=== PATIENT | male | born 1980 | race Caucasian/White ===

== ENCOUNTER 2017-07-16 09:07 | Outpatient (CLI) | payer OTHER ==
[~2017-07-16 09:07] MED LIST: DEXL60CA3 PO; IBUP-1986 PO
[2017-07-16 10:06] LABS: BASOPHILS % (AUTO) 0.3 % (0-1); EOSINOPHILS # (AUTO) 0.2 X10'3 (0-0.9); EOSINOPHILS % (AUTO) 2.6 % (0-6); HEMATOCRIT 42.8 % (42.0-52.0); HEMOGLOBIN 14.7 g/dl (14.0-17.9); LYMPHOCYTES # (AUTO) 2.7 X10'3 (1.1-4.8); LYMPHOCYTES % (AUTO) 37.1 % (21-51); MEAN CORPUSCULAR HEMOGLOBIN 29.8 PG (27.0-31.0); MEAN CORPUSCULAR HGB CONC 34.3 % (33.0-36.5); MEAN CORPUSCULAR VOLUME 86.8 FL (78-98); MEAN PLATELET VOLUME 7.3 FL (7.4-10.4); MONOCYTES # (AUTO) 0.5 X10'3 (0-0.9); MONOCYTES % (AUTO) 7.4 % (2-12); NEUTROPHILS # (AUTO) 3.9 X10'3 (1.8-7.7); NEUTROPHILS % (AUTO) 52.6 % (42-75); PLATELET COUNT 310 X10'3 (140-440); RED BLOOD COUNT 4.93 X10'6 (4.70-6.10); WHITE BLOOD COUNT 7.3 X10'3 (4.5-11.0)
[2017-07-16 10:14] LABS: CLARITY,URINE CLEAR (Clear); COLOR,URINE YELLOW (Yellow); GLUCOSE, URINE NEGATIVE (Neg); KETONES,URINE NEGATIVE (Neg); LEUKOCYTE ESTERASE ,URINE NEGATIVE (Neg); NITRITES, URINE NEGATIVE (Neg); OCCULT BLOOD,URINE NEGATIVE (Neg); PROTEIN,URINE NEGATIVE (Neg); UROBILINOGEN,URINE 0.2 E.U/dL (0.2-1.0)
[2017-07-16 10:15] LABS: UA COLLECTION TYPE CLN CATCH MIDSTREAM
[2017-07-16 10:31] LABS: ALANINE AMINOTRANSFERASE 38 U/L (12-78); ALBUMIN/GLOBULIN RATIO 1.2 (1.1-1.5); ALKALINE PHOSPHATASE 81 IU/L (46-116); ANION GAP 9 (8-16); ASPARTATE AMINO TRANSFERASE 23 U/L (10-37); BILIRUBIN,TOTAL 0.6 MG/DL (0.1-1.0); BLOOD UREA NITROGEN 14 MG/DL (7-18); BUN/CREATININE RATIO 14.4 (5.4-32.0); CALCIUM 9.3 MG/DL (8.5-10.1); CHLORIDE 104 MMOL/L (99-107); CHOL/HDL RATIO 3.9 (0.00-4.99); CHOLESTEROL 176 MG/DL (0-200); CREATININE 0.97 MG/DL (0.60-1.10); GLUCOSE 106 MG/DL (70-104); HDL CHOLESTEROL 45 MG/DL (35-60); LDL CHOLESTEROL 112 MG/DL (50-100); POTASSIUM 4.4 MMOL/L (3.5-5.1); SODIUM 142 MMOL/L (135-145); TOTAL CARBON DIOXIDE 29.2 MMOL/L (24-32); TOTAL PROTEIN 7.4 G/DL (6.4-8.2); TRIGLYCERIDES 81 MG/DL (20-135); eGFR 88 ML/MIN
== END 2017-07-16 23:59 | disposition home or self-care (01) ==
LOC: LAB 09:07
PROVIDERS: ATTEND Family Medicine
DX: F90.9 Attention-deficit hyperactivity disorder, unspecified type (principal); R53.83 Other fatigue; R79.89 Other specified abnormal findings of blood chemistry; Z76.89 Persons encountering health services in other specified circumstances
CPT/HCPCS: 36415; 80053; 80061; 81003; 84439; 84443; 85025

== ENCOUNTER 2017-12-24 05:47 | Outpatient (CLI) | payer OTHER | END 2017-12-24 23:59 | disposition home or self-care (01) | LOC: LAB 05:47 | PROVIDERS: ATTEND Family Medicine | DX: Z72.51 High risk heterosexual behavior (principal); A60.01 Herpesviral infection of penis; Z87.891 Personal history of nicotine dependence | CPT/HCPCS: 36415; 86695; 86696; 87491 ==

== ENCOUNTER 2018-01-05 12:09 | Outpatient (CLI) | payer OTHER | END 2018-01-05 23:59 | disposition home or self-care (01) | LOC: LAB 12:09 | PROVIDERS: ATTEND Otolaryngology | DX: R04.2 Hemoptysis (principal) | CPT/HCPCS: 71046 ==

== ENCOUNTER 2019-03-31 18:24 | Emergency (ER) | payer OTHER ==
[~2019-03-31] VITALS: Ht 193 cm; Wt 100.0 kg
[2019-03-31 19:02] LABS: BASOPHILS # (AUTO) 0.1 X10'3 (0-0.2); BASOPHILS % (AUTO) 0.7 % (0-1); EOSINOPHILS # (AUTO) 0.1 X10'3 (0-0.9); EOSINOPHILS % (AUTO) 1.4 % (0-6); HEMATOCRIT 45.6 % (42.0-52.0); HEMOGLOBIN 15.5 g/dl (14.0-17.9); LYMPHOCYTES # (AUTO) 2.9 X10'3 (1.1-4.8); LYMPHOCYTES % (AUTO) 34.5 % (21-51); MEAN CORPUSCULAR HEMOGLOBIN 29.5 PG (27.0-31.0); MEAN CORPUSCULAR VOLUME 86.5 FL (78-98); MEAN PLATELET VOLUME 7.3 FL (7.4-10.4); MONOCYTES # (AUTO) 0.6 X10'3 (0-0.9); MONOCYTES % (AUTO) 6.6 % (2-12); NEUTROPHILS # (AUTO) 4.8 X10'3 (1.8-7.7); NEUTROPHILS % (AUTO) 56.8 % (42-75); PLATELET COUNT 325 X10'3 (140-440); RED BLOOD COUNT 5.26 X10'6 (4.70-6.10); RED CELL DISTRIBUTION WIDTH 13.8 % (11.5-14.5); WHITE BLOOD COUNT 8.5 X10'3 (4.5-11.0)
[2019-03-31 19:11] LABS: ALANINE AMINOTRANSFERASE 78 U/L (12-78); ALBUMIN 4.6 G/DL (3.4-5.0); ALBUMIN/GLOBULIN RATIO 1.4 (1.1-1.5); ALKALINE PHOSPHATASE 98 IU/L (46-116); ANION GAP 10 (8-16); ASPARTATE AMINO TRANSFERASE 44 U/L (10-37); BILIRUBIN,TOTAL 0.7 MG/DL (0.1-1.0); BLOOD UREA NITROGEN 15 MG/DL (7-18); BUN/CREATININE RATIO 14.7 (5.4-32.0); CALCIUM 9.6 MG/DL (8.5-10.1); CHLORIDE 104 MMOL/L (99-107); CREATININE 1.02 MG/DL (0.60-1.10); GLUCOSE 84 MG/DL (70-104); SODIUM 143 MMOL/L (135-145); TOTAL CARBON DIOXIDE 28.7 MMOL/L (24-32); eGFR 83 ML/MIN
[2019-03-31] MEDS ORDERED: MECL-111 PO (20:07)
--- NOTE | 2019-03-31 20:25 | NUR ---
I HAD ASKED DR MENDEZ FOR THE OTOSCOPE AND HE INFORMED ME THAT THE PATIENT DID NOT HAVE TO HAVE ANY WAX REMOVED THAT I MAY DC THE PATIENT.
[2019-03-31 20:26] VITALS: BP 140/99
== END 2019-03-31 20:27 | disposition home or self-care (01) ==
LOC: ER 18:25
DX: R42 Dizziness and giddiness (principal); H53.8 Other visual disturbances; K21.9 Gastro-esophageal reflux disease without esophagitis; G89.29 Other chronic pain; Z60.2 Problems related to living alone; Z79.899 Other long term (current) drug therapy
CPT/HCPCS: 36415; 71046; 80053; 84484; 85025; 93005; 99284

== ENCOUNTER 2019-04-13 09:51 | Outpatient (CLI) | payer OTHER ==
[~2019-04-13 09:51] MED LIST changes: +MECL-159 PO
[2019-04-13] MEDS ORDERED: iohexol 300mg/ml 100ml inj. ONE (10:00)
[2019-04-13 11:03] LABS: CLARITY,URINE CLEAR (Clear); COLOR,URINE STRAW (Yellow); GLUCOSE, URINE NEGATIVE (Neg); KETONES,URINE NEGATIVE (Neg); LEUKOCYTE ESTERASE ,URINE NEGATIVE (Neg); NITRITES, URINE NEGATIVE (Neg); OCCULT BLOOD,URINE NEGATIVE (Neg); PROTEIN,URINE NEGATIVE (Neg); UROBILINOGEN,URINE 0.2 E.U/dL (0.2-1.0)
[2019-04-13 11:05] LABS: UA COLLECTION TYPE CLN CATCH MIDSTREAM
[2019-04-13 11:05] LABS: BASOPHILS % (AUTO) 0.5 % (0-1); EOSINOPHILS # (AUTO) 0.1 X10'3 (0-0.9); HEMATOCRIT 44.1 % (42.0-52.0); LYMPHOCYTES # (AUTO) 2.2 X10'3 (1.1-4.8); LYMPHOCYTES % (AUTO) 33.1 % (21-51); MEAN CORPUSCULAR HEMOGLOBIN 29.2 PG (27.0-31.0); MEAN PLATELET VOLUME 7.3 FL (7.4-10.4); MONOCYTES # (AUTO) 0.5 X10'3 (0-0.9); MONOCYTES % (AUTO) 7.3 % (2-12); NEUTROPHILS # (AUTO) 3.7 X10'3 (1.8-7.7); NEUTROPHILS % (AUTO) 57.1 % (42-75); PLATELET COUNT 293 X10'3 (140-440); RED BLOOD COUNT 5.13 X10'6 (4.70-6.10); RED CELL DISTRIBUTION WIDTH 13.5 % (11.5-14.5); WHITE BLOOD COUNT 6.5 X10'3 (4.5-11.0)
[2019-04-13 15:04] LABS: ALANINE AMINOTRANSFERASE 41 U/L (12-78); ALBUMIN 3.8 G/DL (3.4-5.0); ALBUMIN/GLOBULIN RATIO 1.1 (1.1-1.5); ALKALINE PHOSPHATASE 86 IU/L (46-116); ANION GAP 10 (8-16); ASPARTATE AMINO TRANSFERASE 24 U/L (10-37); BILIRUBIN,TOTAL 0.6 MG/DL (0.1-1.0); BLOOD UREA NITROGEN 14 MG/DL (7-18); BUN/CREATININE RATIO 14.1 (5.4-32.0); CALCIUM 8.8 MG/DL (8.5-10.1); CHLORIDE 104 MMOL/L (99-107); CHOL/HDL RATIO 3.8 (0.00-4.99); CHOLESTEROL 207 MG/DL (0-200); CREATININE 0.99 MG/DL (0.60-1.10); GLUCOSE 92 MG/DL (70-104); HDL CHOLESTEROL 54 MG/DL (35-60); LDL CHOLESTEROL 133 MG/DL (50-100); POTASSIUM 4.3 MMOL/L (3.5-5.1); SODIUM 141 MMOL/L (135-145); TOTAL CARBON DIOXIDE 27.4 MMOL/L (24-32); TOTAL PROTEIN 7.2 G/DL (6.4-8.2); TRIGLYCERIDES 113 MG/DL (20-135); eGFR 85 ML/MIN
== END 2019-04-13 23:59 | disposition home or self-care (01) ==
LOC: 64 CT 09:51
PROVIDERS: ATTEND Family Medicine
DX: R42 Dizziness and giddiness (principal); F90.9 Attention-deficit hyperactivity disorder, unspecified type; R63.5 Abnormal weight gain
CPT/HCPCS: 36415; 70460; 80053; 80061; 81003; 84439; 84443; 85025; Q9967

== ENCOUNTER 2020-03-20 10:03 | Outpatient (CLI) | payer BC ==
[2020-03-20 11:56] LABS: BASOPHILS % (AUTO) 0.4 % (0-1); EOSINOPHILS # (AUTO) 0.1 X10'3 (0-0.9); HEMATOCRIT 45.5 % (42.0-52.0); HEMOGLOBIN 15.2 g/dl (14.0-17.9); LYMPHOCYTES # (AUTO) 2.1 X10'3 (1.1-4.8); LYMPHOCYTES % (AUTO) 29.9 % (21-51); MEAN CORPUSCULAR HEMOGLOBIN 29.5 PG (27.0-31.0); MEAN CORPUSCULAR HGB CONC 33.5 g/dL (33.0-36.5); MEAN PLATELET VOLUME 7.4 FL (7.4-10.4); MONOCYTES # (AUTO) 0.5 X10'3 (0-0.9); MONOCYTES % (AUTO) 7.5 % (2-12); NEUTROPHILS # (AUTO) 4.2 X10'3 (1.8-7.7); NEUTROPHILS % (AUTO) 61.2 % (42-75); PLATELET COUNT 304 X10'3 (140-440); RED BLOOD COUNT 5.17 X10'6 (4.70-6.10); RED CELL DISTRIBUTION WIDTH 13.4 % (11.5-14.5); WHITE BLOOD COUNT 6.9 X10'3 (4.5-11.0)
[2020-03-20 12:26] LABS: CLARITY,URINE CLEAR (Clear); COLOR,URINE YELLOW (Yellow); GLUCOSE, URINE NEGATIVE (Neg); KETONES,URINE NEGATIVE (Neg); LEUKOCYTE ESTERASE ,URINE NEGATIVE (Neg); NITRITES, URINE NEGATIVE (Neg); OCCULT BLOOD,URINE NEGATIVE (Neg); PROTEIN,URINE NEGATIVE (Neg); UROBILINOGEN,URINE 0.2 E.U/dL (0.2-1.0)
[2020-03-20 12:27] LABS: ALANINE AMINOTRANSFERASE 54 U/L (12-78); ALBUMIN 4.2 G/DL (3.4-5.0); ALBUMIN/GLOBULIN RATIO 1.2 (1.1-1.5); ALKALINE PHOSPHATASE 83 IU/L (46-116); ANION GAP 9 (8-16); ASPARTATE AMINO TRANSFERASE 33 U/L (10-37); BILIRUBIN,TOTAL 0.6 MG/DL (0.1-1.0); BLOOD UREA NITROGEN 15 MG/DL (7-18); BUN/CREATININE RATIO 14.2 (5.4-32.0); CALCIUM 9.4 MG/DL (8.5-10.1); CHLORIDE 105 MMOL/L (99-107); CREATININE 1.06 MG/DL (0.60-1.10); GLUCOSE 103 MG/DL (70-104); POTASSIUM 4.2 MMOL/L (3.5-5.1); SODIUM 143 MMOL/L (135-145); TOTAL CARBON DIOXIDE 28.7 MMOL/L (24-32); TOTAL PROTEIN 7.8 G/DL (6.4-8.2); eGFR 79 ML/MIN
[2020-03-20 12:29] LABS: UA COLLECTION TYPE CLN CATCH MIDSTREAM
[2020-03-20 12:33] LABS: CHOL/HDL RATIO 3.6 (0.00-4.99); CHOLESTEROL 214 MG/DL (0-200); HDL CHOLESTEROL 59 MG/DL (35-60); LDL CHOLESTEROL 133 MG/DL (50-100); TRIGLYCERIDES 103 MG/DL (20-135)
== END 2020-03-20 23:59 | disposition home or self-care (01) ==
LOC: RAD 10:03
PROVIDERS: ATTEND Family Medicine
DX: Z00.00 Encounter for general adult medical examination without abnormal findings (principal); M48.061 Spinal stenosis, lumbar region without neurogenic claudication; G43.919 Migraine, unspecified, intractable, without status migrainosus
CPT/HCPCS: 36415; 70551; 72148; 80053; 80061; 81003; 84439; 84443; 85025

== ENCOUNTER 2020-08-27 08:08 | Emergency (ER) | payer BC, OTHER ==
[~2020-08-27] VITALS: Ht 193 cm; Wt 104.7 kg
[2020-08-27 08:22] VITALS: BP 143/83
[2020-08-27] MEDS ORDERED: TETanus/Pertussis (Acell)/Diphther VAC/PF (Tdap-Adult) 0.5ml syringe IMVAC ONE (08:30)
[2020-08-27] MEDS ORDERED: bacitracin 15gm ointment TP ONE (08:30)
--- NOTE | 2020-08-27 10:00 | NUR ---
BOTH ARMS CLEANED WITH CHLORHEXIDINE WIPES. LEFT ARM WIH PINPOINT SCRATCH, RIGHT ARM WITH MEDIAL ABOUT 7 CM LINEAR SCRATCH/ ABRASION TO UPPER ARM AND LATERALLY A CLUSTER OF SCRATCHES TO RIGHT UPPER ARM BACITRACIN APPLIED AFTER ARMS DRIED, AND BANDAIDS APPLIED. YORDANETN VERBALIZED THAT HE WILL KEEP HIS SCRATCHES COVERED WHILE WORKING. PATIETN VERBALIZED SIGNS AND SYMPTOMS OF INFECTION AND WILL RETURN TO ER IF CONDITION WORSENS OR SIGNS OF INFECTION NOTED. PATIENT IS SPEAKING TO SECURITY WHO IS TAKING A REPORT. PATIENT DISCHARGED BY SHOE RECONDITIONER.
--- NOTE | 2020-08-27 10:01 | NUR ---
NOTE THAT PATIENT CLEANED SCRATCHES THAT BLED WITH ALCOHOL WIPES PRIOR TO ER. ASLO, EXPOSURE LABS DRAWN
== END 2020-08-27 10:02 | disposition home or self-care (01) ==
LOC: ER 08:09
DX: S50.811A Abrasion of right forearm, initial encounter (principal); K21.9 Gastro-esophageal reflux disease without esophagitis; G89.29 Other chronic pain; Z20.3 Contact with and (suspected) exposure to rabies; Z60.2 Problems related to living alone; Z79.899 Other long term (current) drug therapy; W50.4XXA Accidental scratch by another person, initial encounter; Y93.89 Activity, other specified; Y92.89 Other specified places as the place of occurrence of the external cause; Y99.8 Other external cause status
CPT/HCPCS: 90471; 90715; 99283

== ENCOUNTER 2021-03-04 08:51 | Emergency (ER) | payer BC, OTHER ==
[~2021-03-04] VITALS: Ht 193 cm; Wt 93.6 kg
[2021-03-04 09:05] VITALS: BP 125/86
[2021-03-04 09:46] LABS: CLARITY,URINE CLEAR (Clear); COLOR,URINE YELLOW (Yellow); GLUCOSE, URINE NEGATIVE (Neg); KETONES,URINE NEGATIVE (Neg); LEUKOCYTE ESTERASE ,URINE NEGATIVE (Neg); NITRITES, URINE NEGATIVE (Neg); OCCULT BLOOD,URINE NEGATIVE (Neg); PROTEIN,URINE NEGATIVE (Neg); UROBILINOGEN,URINE 0.2 E.U/dL (0.2-1.0)
[2021-03-04 09:48] LABS: BASOPHILS % (AUTO) 0.4 % (0-1); EOSINOPHILS # (AUTO) 0.1 X10'3 (0-0.9); EOSINOPHILS % (AUTO) 1.4 % (0-6); HEMATOCRIT 44.5 % (42.0-52.0); HEMOGLOBIN 15.4 g/dl (14.0-17.9); LYMPHOCYTES # (AUTO) 2.2 X10'3 (1.1-4.8); LYMPHOCYTES % (AUTO) 35.9 % (21-51); MEAN CORPUSCULAR HGB CONC 34.6 g/dL (33.0-36.5); MEAN CORPUSCULAR VOLUME 86.7 FL (78-98); MEAN PLATELET VOLUME 7.3 FL (7.4-10.4); MONOCYTES # (AUTO) 0.4 X10'3 (0-0.9); MONOCYTES % (AUTO) 6.1 % (2-12); NEUTROPHILS # (AUTO) 3.4 X10'3 (1.8-7.7); NEUTROPHILS % (AUTO) 56.2 % (42-75); PLATELET COUNT 281 X10'3 (140-440); RED BLOOD COUNT 5.13 X10'6 (4.70-6.10); RED CELL DISTRIBUTION WIDTH 14.3 % (11.5-14.5); UA COLLECTION TYPE CLN CATCH MIDSTREAM; WHITE BLOOD COUNT 6.1 X10'3 (4.5-11.0)
[2021-03-04 10:22] LABS: ALANINE AMINOTRANSFERASE 31 U/L (12-78); ALBUMIN 4.2 G/DL (3.4-5.0); ALBUMIN/GLOBULIN RATIO 1.2 (1.1-1.5); ALKALINE PHOSPHATASE 66 IU/L (46-116); ANION GAP 8 (8-16); ASPARTATE AMINO TRANSFERASE 18 U/L (10-37); BILIRUBIN,TOTAL 0.9 MG/DL (0.1-1.0); BLOOD UREA NITROGEN 19 MG/DL (7-18); BUN/CREATININE RATIO 18.3 (5.4-32.0); CALCIUM 9.3 MG/DL (8.5-10.1); CHLORIDE 104 MMOL/L (99-107); CHOL/HDL RATIO 3.5 (0.00-4.99); CHOLESTEROL 210 MG/DL (0-200); CREATININE 1.04 MG/DL (0.60-1.10); GLUCOSE 147 MG/DL (70-104); HDL CHOLESTEROL 60 MG/DL (35-60); LDL CHOLESTEROL 133 MG/DL (50-100); POTASSIUM 4.2 MMOL/L (3.5-5.1); SODIUM 141 MMOL/L (135-145); TOTAL CARBON DIOXIDE 28.9 MMOL/L (24-32); TOTAL PROTEIN 7.8 G/DL (6.4-8.2); TRIGLYCERIDES 58 MG/DL (20-135); URINE AMPHETAMINE SCREEN POSITIVE (Neg); URINE BARBITUATE SCREEN NEGATIVE (Neg); URINE BENZODIAZEPINES SCREEN NEGATIVE (Neg); URINE CANNABINOID SCREEN NEGATIVE (Neg); URINE COCAINE SCREEN NEGATIVE (Neg); URINE METHADONE SCREEN NEGATIVE (Neg); URINE OPIATE SCREEN NEGATIVE (Neg); URINE PHENCYCLIDINE SCREEN NEGATIVE (Neg); eGFR 80 ML/MIN
== END 2021-03-04 09:37 | disposition home or self-care (01) ==
LOC: ER 08:51
DX: K21.9 Gastro-esophageal reflux disease without esophagitis (principal); G89.29 Other chronic pain; Z00.00 Encounter for general adult medical examination without abnormal findings
CPT/HCPCS: 36415; 80053; 80061; 80305; 81003; 84439; 84443; 85025; 99283

== ENCOUNTER 2022-07-29 11:52 | Outpatient (CLI) | payer BC | END 2022-07-29 23:59 | disposition home or self-care (01) | LOC: RAD 11:52 | PROVIDERS: ATTEND Physician Assistant | DX: M47.816 Spondylosis without myelopathy or radiculopathy, lumbar region (principal); M54.50 Low back pain, unspecified | CPT/HCPCS: 72114 ==

== ENCOUNTER 2022-10-09 11:05 | Outpatient (CLI) | payer BC | END 2022-10-09 23:59 | disposition home or self-care (01) | LOC: RAD 11:05 | PROVIDERS: ATTEND Physician Assistant | DX: M51.36 Other intervertebral disc degeneration, lumbar region (principal); M51.27 Other intervertebral disc displacement, lumbosacral region; M48.07 Spinal stenosis, lumbosacral region; M53.87 Other specified dorsopathies, lumbosacral region | CPT/HCPCS: 72148 ==

== ENCOUNTER 2022-11-11 01:32 | Emergency (ER) | payer BC ==
[~2022-11-11] VITALS: Ht 190.5 cm; Wt 97.3 kg
--- NOTE | 2022-11-11 02:37 | NUR ---
The patient has had a chronic cough off and on since fall. Currently has had a cough this time for the past two weeks. SOB at times. Afebrile.
--- NOTE | 2022-11-11 02:57 | NUR ---
Patient back from xray. Verbal report given to Dr. Urrutia.
--- NOTE | 2022-11-11 03:48 | NUR ---
at the bedside
--- NOTE | 2022-11-11 03:55 | NUR ---
Blood glucose 103
[2022-11-11] MEDS ORDERED: azithromycin 250mg tablet PO ONE (04:00)
[2022-11-11] MEDS ORDERED: predniSONE 20 mg tablet PO ONE (04:00)
[2022-11-11] MEDS ORDERED: PRED20TA PO (04:11)
[2022-11-11] MEDS ORDERED: PHEN30SP5 NS (04:11)
[2022-11-11] MEDS ORDERED: AZIT-164 PO (04:11)
[2022-11-11] MEDS ORDERED: PANT-47 PO (04:11)
[2022-11-11] MEDS ORDERED: ROBDML PO (04:11)
[2022-11-11] MEDS ORDERED: pantoprazole 40mg Tablet.DR PO SCH ×2 (04:15→07:30)
[2022-11-11] MEDS ORDERED: pantoprazole 40mg Tablet.DR PO ONE (04:15)
[2022-11-11 04:22] VITALS: BP 133/97; PULSE 82; RESP 17; TEMP 98.3; O2SAT 98
== END 2022-11-11 04:25 | disposition home or self-care (01) ==
LOC: ER 01:32
DX: J20.9 Acute bronchitis, unspecified (principal); R05.9 Cough, unspecified; G89.29 Other chronic pain; Z79.899 Other long term (current) drug therapy
CPT/HCPCS: 71046; 82948; 99284; J7512

== ENCOUNTER 2023-07-14 08:50 | Outpatient (CLI) | payer BC ==
[~2023-07-14 08:50] MED LIST changes: -MECL-159 PO; +MECL-302 PO; +PANT-47 PO; +PHEN30SP5 NS
[2023-07-14 09:30] LABS: BASOPHILS % (AUTO) 0.5 % (0-1); EOSINOPHILS # (AUTO) 0.1 X10'3 (0-0.9); EOSINOPHILS % (AUTO) 1.7 % (0-6); HEMATOCRIT 43.4 % (42.0-52.0); HEMOGLOBIN 14.8 g/dl (14.0-17.9); LYMPHOCYTES # (AUTO) 2.2 X10'3 (1.1-4.8); LYMPHOCYTES % (AUTO) 35.4 % (21-51); MEAN CORPUSCULAR HEMOGLOBIN 29.1 PG (27.0-31.0); MEAN CORPUSCULAR HGB CONC 34.1 g/dL (33.0-36.5); MEAN CORPUSCULAR VOLUME 85.3 FL (78-98); MONOCYTES # (AUTO) 0.4 X10'3 (0-0.9); MONOCYTES % (AUTO) 7.1 % (2-12); NEUTROPHILS # (AUTO) 3.5 X10'3 (1.8-7.7); NEUTROPHILS % (AUTO) 55.3 % (42-75); PLATELET COUNT 250 X10'3 (140-440); RED BLOOD COUNT 5.09 X10'6 (4.70-6.10); WHITE BLOOD COUNT 6.3 X10'3 (4.5-11.0)
[2023-07-14 09:55] LABS: ALANINE AMINOTRANSFERASE 28 U/L (12-78); ALBUMIN 3.7 G/DL (3.4-5.0); ALBUMIN/GLOBULIN RATIO 1.1 (1.1-1.5); ALKALINE PHOSPHATASE 76 IU/L (46-116); ANION GAP 9 (8-16); ASPARTATE AMINO TRANSFERASE 21 U/L (10-37); BILIRUBIN,TOTAL 0.7 MG/DL (0.1-1.0); BLOOD UREA NITROGEN 13 MG/DL (7-18); BUN/CREATININE RATIO 11.1 (10.0-20.0); CALCIUM 9.2 MG/DL (8.5-10.1); CHLORIDE 105 MMOL/L (99-107); CHOL/HDL RATIO 3.2 (0.00-4.99); CHOLESTEROL 196 MG/DL (0-200); CREATININE 1.17 MG/DL (0.60-1.10); GLUCOSE 100 MG/DL (70-104); HDL CHOLESTEROL 61 MG/DL (35-60); LDL CHOLESTEROL 114 MG/DL (50-100); POTASSIUM 4.4 MMOL/L (3.5-5.1); SODIUM 143 MMOL/L (135-145); THYROID STIMULATING HORMONE 1.18 ulU/ml (0.34-4.50); TOTAL CARBON DIOXIDE 29.5 MMOL/L (24-32); TOTAL PROTEIN 7.2 G/DL (6.4-8.2); TRIGLYCERIDES 42 MG/DL (20-135); eGFR 69 ML/MIN
[2023-07-15 13:50] LABS: FOLATE SERUM(FOLIC) 18.7 ng/mL (>3.0)
[2023-07-15 19:16] LABS: TESTOSTERONE, SERUM 501 ng/dL (264-916); THYROXINE (T4) 8.2 ug/dL (4.5-12.0)
[2023-07-28 08:54] LABS: TESTOSTERONE, FREE, DIRECT 9.8 pg/mL (6.8-21.5)
== END 2023-07-14 23:59 | disposition home or self-care (01) ==
LOC: LAB 08:50
PROVIDERS: ATTEND Physician Assistant
DX: K21.9 Gastro-esophageal reflux disease without esophagitis (principal); R53.83 Other fatigue; E55.9 Vitamin D deficiency, unspecified; Z82.49 Family history of ischemic heart disease and other diseases of the circulatory system
CPT/HCPCS: 36415; 80053; 80061; 82306; 82607; 82746; 84402; 84403; 84436; 84443; 85025; 87338

== ENCOUNTER 2023-10-06 09:30 | Outpatient (CLI) | payer BC | END 2023-10-06 23:59 | disposition home or self-care (01) | LOC: MRI 09:30 | PROVIDERS: ATTEND Physician Assistant | DX: M51.17 Intervertebral disc disorders with radiculopathy, lumbosacral region (principal); M47.26 Other spondylosis with radiculopathy, lumbar region; M48.07 Spinal stenosis, lumbosacral region | CPT/HCPCS: 72148 ==

== ENCOUNTER 2024-12-29 09:16 | Outpatient (CLI) | payer BC ==
[2024-12-29 09:43] LABS: MEAN PLATELET VOLUME 7.1 FL (7.4-10.4); RED CELL DISTRIBUTION WIDTH 13.9 % (11.5-14.5)
[2024-12-29 10:08] LABS: CHOL/HDL RATIO 3.7 (0.00-4.99); CREATININE 1.26 MG/DL (0.60-1.10); LDL CHOLESTEROL 120 MG/DL (50-100); TOTAL CARBON DIOXIDE 30.8 MMOL/L (24-32); eGFR 63 ML/MIN
[2024-12-30 11:34] LABS: % FREE PSA 33.3 % (.); PROSTATE SPECIFIC AG, SERUM 0.6 ng/mL (0.0-4.0); THYROXINE (T4) 7.7 ug/dL (4.5-12.0)
== END 2024-12-29 23:59 | disposition home or self-care (01) ==
LOC: RAD 09:16
PROVIDERS: ATTEND Physician Assistant
DX: K21.9 Gastro-esophageal reflux disease without esophagitis (principal); Z13.1 Encounter for screening for diabetes mellitus; Z12.5 Encounter for screening for malignant neoplasm of prostate; Z79.899 Other long term (current) drug therapy
CPT/HCPCS: 36415; 80053; 80061; 83036; 84153; 84154; 84436; 84443; 85025

== ENCOUNTER 2025-02-16 07:06 | Day surgery (SDC) | payer BC ==
[~2025-02-16] VITALS: Ht 190.5 cm; Wt 104.7 kg
[~2025-02-16 07:06] MED LIST changes: +AMPH20CA3 PO; +CHOL100046 PO; +CLON0.1T2 PO; -DEXL60CA3 PO; -IBUP-1986 PO; +LIDOcaine 2% Viscous 15ml cup MM ONE; -MECL-302 PO; +OMEP20CA16 PO; -PANT-47 PO; -PHEN30SP5 NS; +PRAZ1CAP5 PO; +SUCR1TAB PO; +ringers solution, lacted 1,000 ML IV SCH
[2025-02-16 07:15] VITALS: BP 133/80; PULSE 63; RESP 16; TEMP 97.4; O2SAT 99
[2025-02-16] MEDS ORDERED: fentaNYL/PF 50MCG/1 ML 2ML syringe ONE (09:31)
[2025-02-16] MEDS ORDERED: propofol inj 20 ML IV ONE (09:33)
[2025-02-16] MEDS ORDERED: midazolam 1 mg/ML 2ml injection ONE (09:33)
[2025-02-16 09:46] VITALS: BP 129/77; PULSE 64; RESP 10; O2SAT 96
[2025-02-16 09:56] VITALS: BP 134/80; PULSE 65; RESP 12; O2SAT 97
[2025-02-16 10:06] VITALS: BP 120/74; PULSE 65; RESP 14; O2SAT 97
[2025-02-16 10:16] VITALS: BP 122/75; PULSE 64; RESP 16; O2SAT 96
[2025-02-16 10:26] VITALS: BP 120/75; PULSE 64; RESP 16; O2SAT 97
== END 2025-02-16 10:26 | disposition home or self-care (01) ==
LOC: PAS 07:06
PROVIDERS: ATTEND Internal Medicine Gastroenterology
DX: R12 Heartburn (principal); K31.7 Polyp of stomach and duodenum; K29.50 Unspecified chronic gastritis without bleeding; K21.9 Gastro-esophageal reflux disease without esophagitis; N18.2 Chronic kidney disease, stage 2 (mild); F90.9 Attention-deficit hyperactivity disorder, unspecified type; G43.109 Migraine with aura, not intractable, without status migrainosus; Z87.891 Personal history of nicotine dependence; Z79.899 Other long term (current) drug therapy; Z98.890 Other specified postprocedural states; Z91.018 Allergy to other foods
CPT/HCPCS: 43239; 43251; 82948; J2250; J2704; J3010; J7120; A4620